=== PATIENT | female | born 1995 | race Caucasian/White ===

== ENCOUNTER 2019-01-19 01:25 | Emergency (ER) | payer OTHER ==
[~2019-01-19] VITALS: Ht 167.6 cm; Wt 47.7 kg
[2019-01-19 01:50] VITALS: BP 121/80
[2019-01-19] MEDS ORDERED: PredniSONE 20 MG TABLET PO ONE (02:00)
[2019-01-19] MEDS ORDERED: ALBUTEROL SULFATE HFA 90 MCG/PUFF 8 GM INHALER IH ONE (02:00)
[2019-01-19] MEDS ORDERED: ACETAMINOPHEN 325 MG TABLET PO ONE (02:00)
== END 2019-01-19 02:42 | disposition home or self-care (01) ==
LOC: EDSEX 01:27 → EMS 01:27
DX: J06.9 Acute upper respiratory infection, unspecified (principal); J45.909 Unspecified asthma, uncomplicated; F12.90 Cannabis use, unspecified, uncomplicated; Z88.1 Allergy status to other antibiotic agents
CPT/HCPCS: 94640; 99283; J7512; J3535